=== PATIENT | male | born 1980 | race Caucasian/White ===

== ENCOUNTER → 2018-01-25 08:26 | Outpatient (CLI) | payer MEDICAID ==
[2016-06-22 13:51] VITALS: BMI 34.5
[~2018-01-25 08:26] MED LIST: ATIVAN1 MG PO; BACTRIM DS TABL1 TAB PO; CLEOCIN HCL150 MG PO; DILAUDID4 MG PO; EFFEXOR37.5 MG PO; LEVAQUIN750 MG PO; MS CONTIN30 MG PO; PERCOCET 10/3251 TA1 PO; TENORMIN25 MG PO
== END | disposition home or self-care (01) ==
LOC: D.CT 08:26
DX: R10.11 Right upper quadrant pain (principal)

== ENCOUNTER → 2020-01-31 08:25 | Outpatient (CLI) | payer MEDICAID ==
[2016-06-22 13:51] VITALS: BMI 34.5
== END | disposition home or self-care (01) ==
LOC: D.RAD 08:25 → D.CT 09:30
PROVIDERS: ATTEND Orthopaedic Surgery
DX: M25.312 Other instability, left shoulder (principal)

== ENCOUNTER 2020-02-14 10:35 | Day surgery (SDC) | payer MEDICAID ==
[2020-02-12 16:48] LABS: HEMATOCRIT 40.6 % (42.0-54.0); HEMOGLOBIN 13.8 g/dL (13.5-17.5); MCH 29.7 pg (26.0-34.0); MCV 87.5 fL (80.0-100.0); MEAN PLATELET VOLUME 10.3 fL (7.4-10.4); RBC 4.64 10x6/uL (4.20-6.10); RDW 13.2 % (11.5-14.5); WBC 10.1 10x3/uL (4.8-10.8)
[~2020-02-14] VITALS: Ht 177.8 cm; Wt 103.4 kg
[~2020-02-14 10:35] MED LIST changes: +IMITREX50 MG PO; +OMEPRAZOLE20 M1 PO; +TOPAMAX50 MG PO
[2020-02-14 11:59] VITALS: BP 133/78; Ht 177.8 cm; Wt 103.4 kg
--- NOTE | 2020-02-14 16:37 | OP ---
PATIENT NAME: SIMA JENKINS MEDICAL RECORD: [id number] :78 LOCATION:[facility] ADMISSION DATE: SURGEON: DAVID HEALY DO DATE OF OPERATION: 02/14/2020 PROCEDURE PERFORMED: Left shoulder arthroscopy with biceps tenodesis, labral debridement, subacromial decompression, distal clavicle excision. PREOPERATIVE DIAGNOSES: Left shoulder superior labrum anterior and posterior tear, subacromial impingement and acromioclavicular joint arthritis. POSTOPERATIVE DIAGNOSES: Left shoulder superior labrum anterior and posterior tear, subacromial impingement and acromioclavicular joint arthritis. INDICATIONS: Mr. Jenkins is a 40-year-old male who has had left shoulder pain for quite some time and been dealing with it for a while. He could not have an MRI and so he got a CT arthrogram. He had all signs of a SLAP tear and we indeed found a SLAP tear, and the rotator cuff was intact on the CT arthrogram. I then talked to him and spoke to him of the risks and benefits including infection, bleeding, damage to nerves and vessels, need for further surgery, arthrofibrosis or frozen shoulder syndrome, continued pain and even and he signed the consent. SURGEON: David Healy DO DESCRIPTION OF PROCEDURE: The patient received block per anesthesia in preoperative area and taken to the operative suite, given 900 mg of clindamycin, laid in the right lateral decubitus position, was sedated and LMA was placed. The left shoulder was then prepped and draped in a sterile fashion. A timeout was performed, everyone was in agreement with the correct side, site, patient and procedure. I then began by making an posterior portal with an 18-gauge spinal needle and insufflating the joint with 60 mL of normal saline. The portal was then established with an 11-blade scalpel and a trocar was entered in the joint and then the camera was entered into the joint. I made an anterior portal with an 18-gauge spinal needle and 11-blade scalpel. SLAP tear was quite evident. There were no other tears, partial tear and slight tearing of the subscapularis, but nothing close to 50% or full thickness. The supraspinatus was in good repair as well as infraspinatus. There was nothing inferior joint or pouch. The cartilage was in good shape. I then brought a burner in through the anterior portal and a bicep tenotomy and a labral debridement and then went to the subacromial space. He had exceedingly high amount of bursa inflamed there. I then established a lateral portal with an 18-gauge spinal needle and 11-blade scalpel and then did a bursectomy and a distal clavicle excision, opening up the AC joint through the anterior portal to approximately 7 mm. I then did an acromioplasty removing the anterior lateral acromion that he had a spur on and then inspected the rotator cuff on the bursal side and there was no tear seen in that. I then went to the anterior humerus, I made a small incision and dissected down to the long head of the biceps tendon fished it out through the incision and then put a 2.9 JuggerLoc loop stitch into the humerus unicortically and then cinched it down over the biceps tendon by holding tension. I then cut the loop and used a free needle and sutured back through the tendon and tied that down, cut the excess tendon and suture and irrigated the site. It was then closed by Ron Guerrero, certified surgical fitter's assistant with 2-0 Vicryl in inverted interrupted fashion, 4-0 Monocryl ran on the skin and the portal sites were closed with 4-0 Monocryl in an inverted interrupted OPERATIVE REPORT [id number] SIMA JENKINS. Then, Dermabond glue was placed on all of them and dressed with Telfa and Tegaderm, was placed in a sling, awakened and taken to recovery in stable condition. ESTIMATED BLOOD LOSS: Minimal. COMPLICATIONS: None. TRANSINT:[id number] Voice Confirmation ID: [id number] DOCUMENT ID: [id number] DAVID HEALY DO at 1637 CC: [id number] DICTATION DATE: 02/14/20 1357 GEOTHERMAL HVAC TECHNICIAN: 02/14/20 1521 [facility] [address] [place] [address]
--- NOTE | 2020-02-14 20:30 | NUR ---
5355 IV D/C'D WITH CANNULA INTACT. DISCHARGE INSTRUCTIONS GIVEN. PER DR. HEALY PT DOES NOT NEED AN IMMOBILIZER SLING. CLARIFIED AT PT REQUEST. NO C/O. PAIN NOW TOLERABLE. WRIGGLES FINGERS
== END 2020-02-14 16:15 | disposition home or self-care (01) ==
LOC: D.OPS 10:35 → D.PAN 13:50 → D.OPS 15:15 → D.PAN 15:15 → D.OPS 16:15
PROVIDERS: Anesthesiology; ATTEND Orthopaedic Surgery
DX: S43.432A Superior glenoid labrum lesion of left shoulder, initial encounter (principal); M75.42 Impingement syndrome of left shoulder; M19.012 Primary osteoarthritis, left shoulder; X58.XXXA Exposure to other specified factors, initial encounter

== ENCOUNTER → 2020-12-15 14:20 | Outpatient (CLI) | payer BC ==
[2020-07-17 06:58] VITALS: BMI 30.4
[~2020-12-15 14:20] MED LIST changes: +TESTOSTERONE; +VISTARIL25 MG PO
== END | disposition home or self-care (01) ==
LOC: D.MRI 14:20
PROVIDERS: ATTEND Nurse Practitioner Family
DX: M75.121 Complete rotator cuff tear or rupture of right shoulder, not specified as traumatic (principal)

== ENCOUNTER → 2020-12-30 08:33 | Outpatient (CLI) | payer BC ==
[2020-07-17 06:58] VITALS: BMI 30.4
== END | disposition home or self-care (01) ==
LOC: D.RAD 08:33
PROVIDERS: ATTEND Nurse Practitioner Family
DX: M75.121 Complete rotator cuff tear or rupture of right shoulder, not specified as traumatic (principal)

== ENCOUNTER 2021-01-08 10:50 | Day surgery (SDC) | payer MEDICAID ==
[2021-01-07 11:32] LABS: BASOPHILS 1.2 % (0-2); EOSINOPHILS 1.6 % (0-7); HEMATOCRIT 42.1 % (42.0-54.0); HEMOGLOBIN 13.9 g/dL (13.5-17.5); LYMPHOCYTES 16.3 % (15-50); MCH 28.6 pg (26.0-34.0); MCHC 33.1 g/dL (31.0-37.0); MCV 86.4 fL (80.0-100.0); MEAN PLATELET VOLUME 7.6 fL (7.4-10.4); MONOCYTES 3.1 % (2-11); NEUTROPHILS 77.8 % (40-80); PLATELET COUNT 237 10x3/uL (130-400); RBC 4.88 10x6/uL (4.20-6.10); RDW 14.4 % (11.5-14.5); WBC 8.9 10x3/uL (4.8-10.8)
[2021-01-07 11:33] LABS: CALC OSMOLALITY 279 mosm/kg (275-300); CALCIUM 8.8 mg/dL (8.5-10.1); CARBON DIOXIDE 27.4 mmol/L (21.0-32.0); CHLORIDE - SERUM 104 mmol/L (98-107); CREATININE - SERUM 0.9 mg/dL (0.6-1.3); GLUCOSE 114 mg/dL (74-106); POTASSIUM - SERUM 4.4 mmol/L (3.5-5.1); SODIUM 139 mmol/L (136-145); UREA NITROGEN 15 mg/dL (7-18); eGFR NON AFRICAN AMERICAN > 90 mL/min (90-120)
[~2021-01-08] VITALS: Ht 177.8 cm; Wt 101.2 kg
[~2021-01-08 10:50] MED LIST changes: +ABILIFY2 MG PO; +LEXAPRO10 MG PO; +MEDROL DOSE PACK4 MG PO; +VISTARIL50 MG PO; +[UNRECOGNIZED DRUG - OTHER] SL
[2021-01-08 12:48] VITALS: BP 123/76; Ht 177.8 cm; Wt 101.2 kg
--- NOTE | 2021-01-09 09:04 | OP ---
PATIENT NAME: SIMA JENKINS MEDICAL RECORD: [id number] :78 LOCATION:[facility] ADMISSION DATE: SURGEON: DAVID HEALY DO DATE OF OPERATION: 01/08/2021 PROCEDURE PERFORMED: Right endoscopic carpal tunnel release. PREOPERATIVE DIAGNOSIS: Right carpal tunnel syndrome. POSTOPERATIVE DIAGNOSIS: Right carpal tunnel syndrome. INDICATIONS: Mr. Jenkins is a 41-year-old male who has had pain in his right wrist that radiates proximal not so much distal. He had a nerve conduction study showing he had a carpal tunnel syndrome. He was tired dealing with the pain and wanted something done surgically. I informed her of the risks of this including infection, bleeding, damage to the median nerve, numbness and tingling continued pain and he signed the consent. SURGEON: David Healy DO DESCRIPTION OF PROCEDURE: The patient was taken to the operative suite, laid in supine position, given general anesthetic and LMA was placed. He was given 2 grams of Ancef. The right upper extremity was prepped and draped in sterile fashion. A timeout was performed and everyone was in agreement with correct side, site, patient and procedure. I then exsanguinated the right upper extremity with an Esmarch, tourniquet was inflated to 250 mmHg, it was up for 7 minutes. I made an incision centered over the palmaris longus tendon made blunt dissection down with two Ragnells to the median nerve. I then released the fascia over the median nerve in the forearm and the incision site from distal to proximal and then went into the carpal tunnel with the dilators. I then brought in the sheath and brought in a probe and rasp to rasp and cleaned off the transverse carpal ligament to ensure there is no transligamentous nerve and I did not see one. I then brought in a blade and raised up and transected the transverse carpal ligament and fat herniated down into the carpal tunnel. I then removed the instruments. I used the long end of the Ragnell and scissors to ensure there were no more remaining fibers in transverse carpal ligament and there were not a good release. I then injected the site with 0.25% Marcaine with epinephrine 8 mL of it. I then let the tourniquet down. Any bleeding was stopped. I then had Ron Guerrero, certified surgical event marketing assistant closed the site with 5-0 Monocryl in inverted interrupted fashion and placed Steri-Strips, Adaptic, 4 x 4, ABD, Kerlix and a Coban lightly wrapped on the wrist and hand. He was awakened and taken to recovery in stable condition. BLOOD LOSS: Minimal. COMPLICATIONS: None. TRANSINT:[id number] Voice Confirmation ID: [id number] DOCUMENT ID: [id number] OPERATIVE REPORT [id number] SIMA JENKINS MICHAEL D, DO at 0904 CC: [id number] DICTATION DATE: 01/08/21 1616 MOLDING LINE OPERATOR: 01/09/21 0241 [facility] 01/08/21 [facility] [address] [place] [address]
== END 2021-01-08 17:45 | disposition home or self-care (01) ==
LOC: D.OPS 10:50
PROVIDERS: Anesthesiology; ATTEND Orthopaedic Surgery
DX: G56.01 Carpal tunnel syndrome, right upper limb (principal); M75.121 Complete rotator cuff tear or rupture of right shoulder, not specified as traumatic